=== PATIENT | male | born 1995 | race Caucasian/White ===

== ENCOUNTER 2023-11-14 07:02 | Emergency (ER) | payer SELFPAY ==
[2023-11-14 07:23] VITALS: BP 151/104; PULSE 76; RESP 20; O2SAT 95
--- NOTE | 2023-11-14 07:28 | HMH.EDGENADL ---
Discharge Plan Disposition Patient Disposition: Home, Self-Care Condition: Good Prescriptions Prescriptions: New ondansetron 4 mg tablet,disintegrating 4 mg PO Q8H PRN (Reason: nausea and vomiting) 4 Days Qty: 12 0RF pantoprazole 40 mg tablet,delayed release (DR/EC) 40 mg PO DAILY Qty: 30 0RF Referrals Follow up/Referrals: Provider,José Miguel, [Primary Care Provider] - See instructions Juanpablo Cisse MD [Staff Physician] - See instructions Activity Restrictions/Add. Instructions Additional Instructions/Restrictions: You were evaluated in the emergency department today. Your liver enzymes are elevated, and your CT scan shows fatty liver disease, but otherwise your workup is reassuring. Please fill your prescriptions and use them as prescribed. Take Tylenol at home as needed for pain. Follow-up closely with a primary care provider for reassessment, as they can recheck your liver enzymes. Return to the emergency department for new or worsening symptoms, such as significant worsening of pain, intractable nausea and vomiting, or fever greater than 100.4 ?F. Clinical Impressions Clinical Impression: Gastroenteritis, Transaminitis Stand Alone Forms Stand Alone Forms: Work/School Release Instructions Patient Instructions: DI for Diarrhea and Traveler's Diarrhea -- Adult, DI for Acute Abdominal Pain, DI for Vomiting -- Adult Print Language Print Language: [place] Discharge ED Provider: Iona Valderrama General Adult HPI General Chief complaint: Abdominal Pain Stated complaint: abd pain, vomitting Time Seen by Provider: 11/14/23 07:27 History of Present Illness HPI narrative: This patient is a 28-year-old [place] Islander-speaking male presenting to the emergency department for evaluation with concern for epigastric abdominal pain. He notes that it started earlier this morning. He has had nausea and 1 episode of nonbloody nonbilious emesis. He also had small amount of diarrhea, but he states it was not a lot. No blood in his stools. He denies experiencing anything like this in the past. He denies any prior abdominal surgeries. He also denies any heavy alcohol use. He states he is currently on ampicillin for a throat infection, which has been on for about 3 days now. No other medications taken prior to arrival. History is obtained with the help of a computer typesetter. Related Data Previous Rx's ?Medication ?Instructions ?Recorded ondansetron 4 mg disintegrating 4 mg PO Q8H PRN nausea and 11/14/23 tablet vomiting 4 days #12 tabs pantoprazole 40 mg tablet,delayed 40 mg PO DAILY #30 tabs 11/14/23 release Allergies Allergy/AdvReac Type Severity Reaction Status Date / Time No Known Allergies Allergy Verified 11/14/23 07:57 [facility] Disclaimer: The information contained in this section may have been updated after the patient was seen, as this information can be updated by other users. Social History Smoking Status: Never smoker alcohol intake: never current occupational status: employed Travel in the last 8 weeks: None ROS Obtained: Yes All systems reviewed & no additional complaints except as documented Physical Exam General General appearance: alert and in no apparent distress Head Head exam: atraumatic and normocephalic Eye Eye exam: Present normal appearance, PERRL and EOMI ENT ENT exam: Present normal exam, normal oropharynx, mucous membranes moist and normal external ear exam Neck Neck exam: Present normal inspection, full ROM and trachea midline; Absent tenderness Chest Chest inspection: Present normal inspection and symmetric chest wall rise; Absent tenderness Respiratory Respiratory exam: Present normal lung sounds bilaterally; Absent respiratory distress, wheezes, stridor or accessory muscle use Cardiovascular Cardiovascular exam: Present regular rate and normal rhythm Abdominal Exam Abdominal exam: Present soft and tenderness (Epigastric); Absent distention, guarding, rebound or rigidity Extremities Exam Extremities exam: Present normal inspection, full ROM and normal capillary refill; Absent tenderness or edema Back Exam Back exam: Present normal inspection and full ROM; Absent tenderness Neurological Exam Neurological exam: Present alert, oriented X3, CN II-XII intact and normal gait; Absent motor sensory deficit Psychiatric Psychiatric exam: Present normal affect and normal mood Skin Skin exam: Present warm and dry Medical Decision Making Medical Records Medical records reviewed: Yes I reviewed the patient's medical records. Martín Inquiry Pt receiving controlled substance: No Vital Signs: 11/14/23 07:23 11/14/23 07:30 11/14/23 07:33 Temperature 98.2 F Temperature Source Oral Pulse Rate 76 73 Pulse Rate [Left Radial] 76 Respiratory Rate 20 18 20 Blood Pressure 151/104 H 148/97 H Blood Pressure [Right Arm] 151/104 H Blood Pressure Mean Blood Pressure Mean [Right Arm] 119 02 Sat by Pulse Oximetry 95 97 96 Oxygen Delivery Method Room Air Room Air Room Air 11/14/23 08:00 11/14/23 08:30 11/14/23 10:55 Temperature 98.0 F Temperature Source Pulse Rate 89 88 63 Pulse Rate [Left Radial] Respiratory Rate 20 16 Blood Pressure 134/114 H 143/92 H 129/80 Blood Pressure [Right Arm] Blood Pressure Mean 109 Blood Pressure Mean [Right Arm] 02 Sat by Pulse Oximetry 95 96 Oxygen Delivery Method Room Air Lab Data Lab results reviewed: Yes I reviewed the patient's lab results. Lab Results 11/14/23 07:30: WBC 12.8 H, RBC 5.04, Hgb 15.7, Hct 46.7, MCV 92.6, MCH 31.2, MCHC 33.7, RDW 13.9, Plt Count 242, MPV 7.5, Neut % (Auto) 84.4 H, Lymph % (Auto) 9.3 L, Hall % (Auto) 5.3, Eos % (Auto) 0.7, Baso % (Auto) 0.4, Neut # (Auto) 10.8 H, Lymph # (Auto) 1.2, Hall # (Auto) 0.7, Eos # (Auto) 0.1, Baso # (Auto) 0.1, Sodium 140, Potassium 4.1, Chloride 104, Carbon Dioxide 27, Anion Gap 13.1, BUN 12, Creatinine 1.00, Estimated Creat Clear 135, Estimated GFR 90, Est GFR ( Amer) 108, Glucose 143 H, Calcium 9.2, Total Bilirubin 1.3, AST 251 H, ALT 186 H, Alkaline Phosphatase 114, Total Protein 8.1, Albumin 4.8, Globulin 3.3 H, Albumin/Globulin Ratio 1.5, Lipase 38 11/14/23 07:30 11/14/23 07:30 Orders (Tests/Meds): ED MEDICATIONS Discontinued Medications Generic Name Dose Route Start Last Admin Trade Name Freq PRN Reason Stop Dose Admin Acetaminophen 1,000 mg 11/14/23 07:27 11/14/23 08:18 Acetaminophen 1,000mg/100ml Vial IV 11/14/23 07:28 1,000 mg ONCE ONE Administration Famotidine 20 mg 11/14/23 07:27 11/14/23 08:18 Famotidine 20mg/2ml Vial IV 11/14/23 07:28 20 mg ONCE ONE Administration Lactated Ringer's 1,000 mls @ 999 mls/hr 11/14/23 07:27 11/14/23 08:18 Lactated Ringer's 1000 Ml Bag IV 11/14/23 08:27 999 mls/hr .Q1H1M ONE Administration Ketorolac Tromethamine 15 mg 11/14/23 07:27 11/14/23 08:18 Ketorolac 30mg/Ml Vial IV 11/14/23 07:28 15 mg ONCE ONE Administration Ondansetron HCl 4 mg 11/14/23 07:27 11/14/23 08:18 Ondansetron 4mg/2ml Vial IV 11/14/23 07:28 4 mg ONCE ONE Administration Sodium Chloride 8 ml 11/14/23 07:27 Sodium Chloride 0.9% 10ml Vial IV 12/14/23 07:26 NEEDED PRN dilute pepcid ORDERS Category Date Time Status US RUQ [US abdomen limited] Stat Exams 11/14/23 08:24 Completed Complete Blood Count Auto Diff Stat Lab 11/14/23 07:30 Completed Comprehensive Metabolic Panel Stat Lab 11/14/23 07:30 Completed Lipase Stat Lab 11/14/23 07:30 Completed ECG Data Tracing #1: I reviewed this ECG and interpreted as documented below: Normal sinus rhythm with a ventricular rate of [address] changes concerning for ischemia. Normal axis and intervals ECG initial impression date: 11/14/23 ECG initial impression time: 08:29 Medical Decision Narrative: In summary, this patient is a 28-year-old male presenting to the Emergency Department for evaluation of epigastric abdominal pain, nausea, vomiting, and diarrhea. Differential diagnoses considered include but are not limited to gastroenteritis, gastritis, peptic ulcer disease, pancreatitis, cholecystitis, hepatitis. Ruling out the most morbid conditions drove assessment. History is obtained with the help of a computer typesetter. On exam, the patient is sitting upright in bed no acute distress. Vitals are reassuring on cardiac telemetry. He has epigastric tenderness but no rebound or guarding. Exam is otherwise reassuring. Workup included CBC, CMP, lipase, and EKG. He was given a bolus of IV fluids as well as IV Pepcid, acetaminophen, Toradol, and Zofran. Labs demonstrated transaminitis and mild leukocytosis. This could be reactive to acute upper intestinal illness, however given location of his pain and symptoms as well as his lab abnormalities, right upper quadrant ultrasound was ordered. Independently interpreted this prior to radiology read and noted no cholecystitis. Radiology did note changes consistent with fatty liver but normal gallbladder with no elevation in bile ducts. Bilirubin and lipase normal. On reassessment, the patient is feeling much better and tolerated p.o. intake without difficulty. Abdominal exam is benign. I feel that he likely has a gastroenteritis with reactive leukocytosis and transaminitis. I advised that he follow-up very closely with the primary care provider for reassessment of his liver enzymes and did notify him of his findings of fatty liver disease. Patient was given prescriptions for Zofran and pantoprazole as well as instructions for supportive management. He was discharged with strict return precautions. All conversations with the patient were with the help of a computer typesetter via iPad. Critical Care Critical Care Time Critical Care Time: No
[2023-11-14 07:30] VITALS: BP 148/97; PULSE 73; RESP 18; O2SAT 97
[2023-11-14 07:33] VITALS: BP 151/104; PULSE 76; RESP 20; TEMP 36.8; O2SAT 96; BMI 27.8
[2023-11-14 07:46] LABS: Basophils # 0.1 K/mm3 (0-0.2); Basophils % 0.4 % (0.1-2.0); Eosinophils # 0.1 K/mm3 (0.0-0.4); Eosinophils % 0.7 % (0.1-12.0); Hematocrit 46.7 % (42.0-52.0); Hemoglobin 15.7 g/dL (14.1-18.0); Lymphocytes # 1.2 K/mm3 (0.7-4.5); Lymphocytes % 9.3 % (10-50); Mean Corpuscular HGB Conc 33.7 g/dL (31.8-35.4); Mean Corpuscular Hemoglobin 31.2 pg (27.0-31.2); Mean Corpuscular Volume 92.6 fl (80-94); Mean Platelet Volume 7.5 fl (7.4-10.4); Monocytes # 0.7 K/mm3 (0.1-1.0); Monocytes % 5.3 % (1.7-9.3); Neutrophils # 10.8 K/mm3 (1.8-7.8); Neutrophils % 84.4 % (37.0-80.0); Platelet Count 242 K/mm3 (142-424); Red Blood Count 5.04 M/mm3 (4.60-6.20); Red Cell Distribution Width 13.9 % (11.5-17.5); White Blood Count 12.8 K/mm3 (4.8-10.8)
[2023-11-14 08:00] VITALS: BP 134/114; PULSE 89; RESP 20; O2SAT 95
[2023-11-14 08:05] LABS: Albumin Level 4.8 g/dl (3.5-5.0); Chloride 104 mmol/L (98-107); Potassium 4.1 mmoL/L (3.5-5.1); Sodium 140 mmol/L (136-145)
[2023-11-14 08:08] LABS: Alanine Aminotransferase 186 U/L (12-78); Albumin/Globulin Ratio 1.5 (1.1-1.8); Alkaline Phosphatase 114 U/L (38-126); Anion Gap 13.1 mEq/L (5-15); Aspartate Amino Transferase 251 U/L (17-59); Bilirubin,Total 1.3 mg/dl (0.2-1.3); Blood Urea Nitrogen 12 mg/dl (9-20); Calcium 9.2 mg/dl (8.4-10.2); Carbon Dioxide 27 mmol/L (22.0-30.0); Creatinine Clearance Estimated 135 mL/min (50-200); Estimated Glomerular Filt Rate 90 ml/min (>60); GFR (African American) 108 ML/MIN (>60); Globulin 3.3 g/dL (1.3-3.2); Glucose 143 mg/dl (74-100); Lipase 38 U/L (23-300); Total Protein,Serum 8.1 g/dl (6.3-8.2)
[2023-11-14] MEDS: KETOROLAC 30MG/ML VIAL 15 MG IV (08:18)
[2023-11-14] MEDS: ACETAMINOPHEN 1,000MG/100ML VIAL 1000 MG IV (08:18)
[2023-11-14] MEDS: FAMOTIDINE 20MG/2ML VIAL 20 MG IV (08:18)
[2023-11-14] MEDS: LACTATED RINGERS 1000ML 1,000 ML 999 ML IV (08:18)
[2023-11-14] MEDS: ONDANSETRON 4MG/2ML VIAL 4 MG IV (08:18)
--- NOTE | 2023-11-14 08:24 | US_ITS ---
FINAL REPORT CLINICAL HISTORY: epigastric/RUQ pain, transaminitis FINDINGS: RIGHT UPPER QUADRANT ULTRASOUND Sonographic images of the right upper quadrant were obtained. The pancreas is partially obscured. There is fatty infiltration of the liver. The gallbladder appears normal without evidence of gallstones.The common duct measures 4 mm. Limited images of the right kidney are normal. IMPRESSION: Fatty liver. Reviewed, Interpreted and Dictated by Earl Ocampo III, MD Transcribed by Ashley Escalera Authenticated and [facility]
--- NOTE | 2023-11-14 08:27 | ECG_ITS ---
APPROVED REPORT Exam: Resting ECG HR:79 bpm ECG Measurements Heart Rate 79 AXES VA 145 P 42 QRSd 108 QRS 50 QT 363 T 9 QTc 398 Conclusion SINUS RHYTHM NORMAL ECG Electronically signed by : JEMIMA MODI, 11/14/2023 15:29:20
--- NOTE | 2023-11-14 08:28 | PC.NURSE ---
DR MODI AT BEDSIDE TO REEVALUATE PT
[2023-11-14 08:30] VITALS: BP 143/92; PULSE 88; O2SAT 96
--- NOTE | 2023-11-14 08:44 | PC.NURSE ---
PT TO US
--- NOTE | 2023-11-14 09:02 | PC.NURSE ---
PT RETURNED FROM US
--- NOTE | 2023-11-14 10:20 | PC.NURSE ---
[employer] PROVIDED
[2023-11-14 10:55] VITALS: BP 129/80; PULSE 63; RESP 16; TEMP 36.7
== END 2023-11-14 10:55 | disposition home or self-care (01) ==
PROVIDERS: Emergency Provider Emergency Medicine
DX: R10.13 Epigastric pain (principal); K52.9 Noninfective gastroenteritis and colitis, unspecified; R74.01 Elevation of levels of liver transaminase levels; R11.2 Nausea with vomiting, unspecified; K76.0 Fatty (change of) liver, not elsewhere classified
CPT/HCPCS: 76705; 80053; 83690; 85025; 93005; 96361; 96374; 96375; 99285; J0131; J1885; J2405; J7120; S0028